=== PATIENT | male | born 1955 | race Two or more races ===

== ENCOUNTER → 2021-02-04 | Outpatient (BNVA) | payer MEDICARE, MEDICAID, SELFPAY | END | disposition home or self-care (01) | PROVIDERS: PCP Nurse Practitioner; Visit Provider Urology | DX: I10 Essential (primary) hypertension (principal) ==

== ENCOUNTER 2024-04-11 10:53 | Emergency (ER) | payer MEDICARE, MEDICAID, SELFPAY ==
[2024-04-11 11:10] VITALS: BP 124/83; PULSE 79; RESP 17; TEMP 37; O2SAT 96; BMI 22.8
--- NOTE | 2024-04-11 11:29 | PD.EDRME ---
Rapid Medical Screening Exam RME Arrival date/time: 04/11/24 10:53 68-year-old male presents to the emergency department with complaints of lower abdominal pain intermittent for 1 month. I have greeted and performed a focused initial assessment of this patient. Initial appropriate labs ordered at this time. A comprehensive ED assessment and evaluation of the patient and analysis of all test and completion of medical decision making process will be conducted by additional ED provider. Chief Complaint: Abdominal Pain Time Seen by Provider: 04/11/24 11:02 Vital signs: Vital Signs Temperature 98.6 F 04/11/24 11:10 Pulse Rate 79 04/11/24 11:10 Respiratory Rate 17 04/11/24 11:10 Blood Pressure 124/83 04/11/24 11:10 Pulse Oximetry (%) 96 04/11/24 11:10 Oxygen Delivery Method Room Air 04/11/24 11:10
[2024-04-11 11:41] LABS: Collection Type, Urine Clean Catch; Squamous Epithelial Cell,Urine 0 /hpf (0-5); WBC,Urine 0 /hpf (0-5)
[2024-04-11] MEDS: DICYCLOMINE 10 MG CAPSULE PO (11:42)
[2024-04-11] MEDS: MG HYD/AL HYD/SIME (Maalox Reg) SUSP 30 ML UDC PO (11:43)
[2024-04-11] MEDS: LIDOCAINE VISCOUS 2% 15 ML UDC PO (11:43)
[2024-04-11 11:45] LABS: Basophils # (Auto) 0.1 Thou/mm3 (0.0-0.2); Basophils % (Auto) 0 % (0-2.5); Eosinophils # (Auto) 0.4 Thou/mm3 (0.0-0.5); Eosinophils % (Auto) 2 % (0-10); Hematocrit 49.5 % (41.0-53.0); Hemoglobin 16.7 g/dL (13.5-16.0); Immature Granulocytes % (Auto) 0 % (0-0); Immature Granulocytes Auto 0.04 Thou/mm3 (0.00-0.00); Lymphocytes # (Auto) 2.7 Thou/mm3 (1.0-4.8); Lymphocytes % (Auto) 17 % (10-50); Mean Corpuscular HGB Conc 33.7 g/dl (31.0-37.0); Mean Corpuscular Hemoglobin 29.7 pg (25.0-35.0); Mean Corpuscular Volume 88 fL (80-100); Monocytes # (Auto) 0.8 Thou/mm3 (0.0-0.8); Monocytes % (Auto) 5 % (0-12); Neutrophils # (Auto) 11.7 Thou/mm3 (1.8-7.7); Neutrophils % (Auto) 74 % (37-80); Nucleated Red Blood Cell % 0 /100 WBC (0); Platelet Count 161 Thou/mm3 (140-440); RDW Standard Deviation 43.5 fL (35.1-43.9); Red Blood Count 5.62 Miln/mm3 (4.50-5.90); White Blood Count 15.7 Thou/mm3 (3.8-10.6)
--- NOTE | 2024-04-11 11:57 | XR_ITS ---
Examination: CT abdomen with intravenous contrast CT pelvis with intravenous contrast 2-D coronal reconstructions 2-D sagittal reconstructions Date and time of exam:April 11, 2024 1458 hours Comparison June 11, 2022 INDICATIONS: Severe nausea vomiting diarrhea beginning 2 weeks ago, worse today. CTDI: vol (mGy) 5.83 DLP: (mGycm) 333 Technique: Multiple axial sections of the abdomen and pelvis have been obtained. 64 slice high-resolution scanner used. 3 mm axial sections have been obtained, post intravenous injection 60 cc [id number] 2-D sagittal, coronal reconstructions obtained. Low dose protocols were performed. One or more of the following dose reduction techniques were used; automated exposure control, adjustment of the mA and/or KV according to patient size, use of iterative reconstruction technique. Findings: Tiny liver cyst, no biliary tract dilatation No gallstones Spleen not enlarged No pancreatic or adrenal mass No renal or ureteral calculi, no hydronephrosis Abdominal aorta intact No pericecal inflammatory change Multiple fluid distended small bowel loops with some small bowel wall thickening Colonic diverticulosis with hyperemia and wall thickening diffusely involving the colon No diverticulitis Prostate is significantly enlarged, transverse dimension 5.2 cm Urinary bladder intact Lumbar fusion L5-S1 with satisfactory alignment IMPRESSION: Diffuse nonspecific colitis pattern Diffuse enteritis pattern Differential would include Crohn's disease Colonic diverticulosis, no diverticulitis Significant prostatomegaly
[2024-04-11 11:58] LABS: Bilirubin,Urine Negative (Negative); Blood,Urine Negative (Negative); Clarity,Urine Clear (Clear/Hazy); Color,Urine Lt-Yellow (Lt Yel-Yel); Glucose, Urine 4+ (Negative); Ketones,Urine Negative (Negative); Leukocyte Esterase,Urine Negative (Negative); Nitrite,Urine Negative (Negative); PH,Urine 6.5 (5.0-7.0); Protein,Urine Negative (Neg - Trace); RBC,Urine 3 /hpf (0-3); Specific Gravity,Urine 1.028 (1.001-1.035); Urobilinogen,Urine Negative mg/dL (0.0-1.0)
[2024-04-11 12:06] LABS: Alanine Aminotransferase 27 U/L (10-49); Albumin, Serum 4.7 gm/dL (3.4-4.8); Albumin/Globulin Ratio 1.8 (1.2-2.2); Alkaline Phosphatase 119 U/L (46-116); Anion Gap 4 (7-16); Aspartate Amino Transferase 22 U/L (0-34); BUN/Creatinine Ratio 18 Ratio (12-20); Bilirubin,Total 0.6 mg/dL (0.3-1.2); Blood Urea Nitrogen 14 mg/dL (9-23); Calcium 9.4 mg/dL (8.3-10.6); Calcium (Corrected) 9.4 mg/dL (8.5-10.1); Carbon Dioxide 25.8 mMol/L (20.0-31.0); Chloride 105 mMol/L (98-107); Creatinine (Component) 0.8 mg/dL (0.6-1.3); Estimated Creatinine Clearance 76.9 mL/min (>60); Globulin 2.6 gm/dL (2.3-3.5); Glucose 120 mg/dL (74-106); Lipase 64 U/L (12-53); Magnesium 2.3 mg/dL (1.6-2.6); Osmolality,Calculated 271 (275-295); Potassium 3.8 mMol/L (3.4-5.1); Sodium 135 mMol/L (136-145); Total Protein 7.3 gm/dL (5.7-8.2); Troponin I < 0.002 ng/mL (0.0-0.045); eGFR > 60 See Note
--- NOTE | 2024-04-11 16:59 | EDNOTE_ITS ---
ED Abdominal Pain RME/HPI General Chief Complaint: Abdominal Pain Stated complaint: ABD PAIN, DIARRHEA, CHILLS Time seen by provider: 04/11/24 11:02 Arrival date/time: 04/11/24 10:53 RME / HPI RME / HPI narrative: 68-year-old male patient was brought in by family for evaluation regarding lower abdominal pain, it comes and goes for the last 1 month. Associated with diarrhea nonbloody this morning. Patient denies any fever denies any vomiting. Denies any other complaints no medications taken prior to arrival. Related Data Home Medications ?Medication ?Instructions ?Recorded ?Confirmed atorvastatin 80 mg tablet 80 mg PO HS 06/10/20 02/12/24 liraglutide 0.6 mg/0.1 mL (18 mg/3 1.8 mg subcut QAM 06/10/20 02/12/24 mL) subcutaneous pen injector (Victoza 2-Gm) aspirin 81 mg tablet,delayed 81 mg PO QDAY 02/18/22 02/12/24 release clopidogrel 75 mg tablet (Plavix) 75 mg PO QDAY 02/18/22 02/12/24 empagliflozin 25 mg tablet 25 mg PO QDAY 01/25/23 02/12/24 (Jardiance) tamsulosin 0.4 mg capsule 0.4 mg PO QDAY 08/11/23 02/12/24 finasteride 5 mg tablet 5 mg PO QDAY 02/12/24 02/12/24 Previous Rx's ?Medication ?Instructions ?Recorded ciprofloxacin HCl 500 mg tablet 500 mg PO BID #14 tabs 04/11/24 (Cipro) metronidazole 500 mg tablet 500 mg PO BID 7 days #14 tabs 04/11/24 Allergies Allergy/AdvReac Type Severity Reaction Status Date / Time No Known Allergies Allergy Verified 02/12/24 08:36 Review of Systems Review of Systems Narrative Review of Systems: Review of system reviewed and within normal limits except mentioned in HPI ED Exam Narrative Physical exam: VITAL SIGNS: Reviewed. GENERAL APPEARANCE: Alert and interactive, follows commands, no acute distress, HEAD AND FACE: Non-traumatic. ENT: PERRL, pink conjunctivitis, eyelid no trauma, Mucous membrane moist. NECK: Supple, nontender, no nuchal rigidity. CHEST: No tenderness, no crepitus, no paradoxical movement, no retractions. LUNGS: Clear, well ventilated, symmetric, no rales, no wheezing, no ronchi, no stridor, good breath sounds bilaterally. HEART: Regular rate, regular rhythm, no murmur, no gallops. ABDOMEN: Soft, positive bowel sounds, nondistended, no guarding, lower abdominal tenderness, no rebound, no masses, RECTAL: Deferred. GENITAL: Deferred. NEUROLOGICAL: Gross motor function intact sensory function intact, Appropriate for age. MUSCULOSKELETAL: low back nontender, full range of motion. EXTREMITIES: Nontender, full range of motion. SKIN: Color pink, dry, no rash, no lacerations, no abrasions, no contusions. LYMPHATICS: Deferred. Course Quality Measures none Orders Category Date Time Status CT Screening NOW Care 04/11/24 11:57 Active NPO STAT Care 04/11/24 11:[address] abdomen pelvis w con Stat Exams 04/11/24 11:57 Completed CBC Stat Lab 04/11/24 11:37 Completed Comprehensive Metabolic Panel Stat Lab 04/11/24 11:37 Completed Lipase Stat Lab 04/11/24 11:37 Completed Magnesium Stat Lab 04/11/24 11:37 Completed Prothrombin Time with INR Stat Lab 04/11/24 11:37 Completed Troponin I Stat Lab 04/11/24 11:37 Completed Urinalysis Stat Lab 04/11/24 11:36 Completed Ciprofloxacin HCl [Ciprofloxacin] Med 04/11/24 16:46 Discontinued 500 mg PO X1 ONE Dicyclomine [Bentyl] Med 04/11/24 11:23 Discontinued 10 mg PO X1 ONE Lidocaine 2% Viscous [Xylocaine 2% Viscous] Med 04/11/24 11:23 Discontinued 15 ml PO X1 ONE mg Hyd/Al Hyd/Gopal Susp [Maalox Susp] Med 04/11/24 11:23 Discontinued 30 ml PO X1 ONE Vital Signs Vital signs: Vital Signs Temperature 98.6 F 04/11/24 11:10 Pulse Rate 79 04/11/24 11:10 Respiratory Rate 17 04/11/24 11:10 Blood Pressure 124/83 04/11/24 11:10 Pulse Oximetry (%) 96 04/11/24 11:10 Oxygen Delivery Method Room Air 04/11/24 11:10 Abdominal Pain MDM MDM Narrative MDM Narrative:: Patient's workup all came back unremarkable except for leukocytosis of 15.7. CT scan of the abdomen and pelvis showed Diffuse nonspecific colitis pattern Diffuse enteritis pattern Differential would include Crohn's disease Colonic diverticulosis, no diverticulitis Significant prostatomegaly Patient was given Cipro in the ED. Patient data External records reviewed:: None Clinical information provided by:: patient Social determinants that could affect healthcare access:: none Patient has the following chronic illnesses:: History of TIA How is presenting disease/condition affected by chronic disease/condition?: caused by Evaluation data The following diagnostics were reviewed and interpreted by me:: lab results and radiology exam(s) Lab and/or radiology exams considered but not ordered:: None Interpretation Summary: Laboratory workup all came back with leukocytosis 15.7. The rest of the labs unremarkable. CT scan of the abdomen pelvis showed Diffuse nonspecific colitis pattern Diffuse enteritis pattern Differential would include Crohn's disease Colonic diverticulosis, no diverticulitis Significant prostatomegaly Medications / Prescriptions Medications or Prescriptions considered but not ordered:: None Medication administrations:: Medication Administration History Discontinued Medications Al Hydrox/Mg Hydrox/Simethicone (Mg Hyd/Al Hyd/Gopal (Maalox Reg) Susp 30 Ml Udc) 30 ml PO X1 ONE Stop: 04/11/24 11:24 Last Admin: 04/11/24 11:43 Dose: 30 ml Documented By: DERICK Ciprofloxacin (Ciprofloxacin Hcl 250 Mg Tablet) 500 mg PO X1 ONE Stop: 04/11/24 16:47 Dicyclomine HCl (Dicyclomine 10 Mg Capsule) 10 mg PO X1 ONE Stop: 04/11/24 11:24 Last Admin: 04/11/24 11:42 Dose: 10 mg Documented By: DERICK Lidocaine HCl (Lidocaine Viscous 2% 15 Ml Udc) 15 ml PO X1 ONE Stop: 04/11/24 11:24 Last Admin: 04/11/24 11:43 Dose: 15 ml Documented By: VG Maalox, Cipro, Bentyl and lidocaine Consultations Consultation(s) initiated? (list below): No Diagnosis Differential diagnosis abdominal pain: abdominal pain, constipation, diverticulitis and other (Colitis) Most likely diagnosis given after review of the tests above:: Colitis Admission Indicated Admission indicated?: not indicated Admission Request Was there a request for admission?: No Disposition Plan Disposition Plan: Discharge Discharge Attestation Discharge Attestation: The patient was given an opportunity to ask questions and understood the discharge instructions. Discharge instructions specifically effects, indications for sooner follow up or return to the emergency department, and the expected course of current diagnosis. Patient condition: Stable Discharge Plan Plan Patient Disposition: HOME (Self Care) Disposition Comment: stable Prescriptions/Referrals Prescriptions/Med Rec: New ciprofloxacin HCl [Cipro] 500 mg tablet 500 mg PO BID Qty: 14 0RF metronidazole 500 mg tablet 500 mg PO BID 7 Days Qty: 14 0RF No Action clopidogrel [Plavix] 75 mg tablet 75 mg PO QDAY aspirin 81 mg tablet,delayed release (DR/EC) 81 mg PO QDAY tamsulosin 0.4 mg capsule 0.4 mg PO QDAY finasteride 5 mg tablet 5 mg PO QDAY atorvastatin 80 mg Tablet 80 mg PO HS Victoza 2-Gm 0.6 mg/0.1 mL (18 mg/3 mL) Pen Injector 1.8 mg SUBCUT QAM Jardiance 25 mg tablet 25 mg PO QDAY Referrals: Imelda Mccormack MD [Primary Care Provider] - In 1 week Problem List Clinical Impression: Colitis Patient/Caregiver Discharge Instructions Education Materials: Understanding Colitis Additional Instructions: Thank you for the opportunity for serving you today. You are stable for discharged . You are advised to: Follow-up with your PCP in 1 to 2 days and as per referral to GI specialist Return to ED for worsening of symptoms Increase oral fluids Take medication as prescribed Print Language: Zambian Stand Alone Forms: Aida Award Info., Patient Portal Info Letter PA/ETHYLBENZENE CRACKING SUPERVISOR Supervising Physician ARTHUR/NILDA Supervising Physician: MD Lubna
[2024-04-11] MEDS: CIPROFLOXACIN HCL 250 MG TABLET 500 MG PO (17:09)
== END 2024-04-11 17:19 | disposition home or self-care (01) ==
PROVIDERS: Nurse Practitioner Primary Care; Emergency Provider Emergency Medicine; PCP Internal Medicine
DX: K52.9 Noninfective gastroenteritis and colitis, unspecified (principal)
CPT/HCPCS: 36415; 74177; 80053; 81001; 83690; 83735; 84484; 85025; 85610; 99285; A4649; J3490; Q9967; A9270

== ENCOUNTER → 2024-04-17 | Outpatient (CLI) | payer MEDICARE, MEDICAID, SELFPAY ==
--- NOTE | 2024-04-17 08:34 | XR_ITS ---
Examination: Lumbar spine 3 views Technique: AP lateral coned lateral lower lumbar spine 3 views standing Exam date and time: April 17, 2024 0849 hours INDICATIONS: Low back pain beginning 2 years ago radiating down the left leg FINDINGS: Transpedicular lumbar fusion L5-S1 with anatomic alignment Minimal anterolisthesis, 4 mm L4 on L5 Diffuse mild lumbar disc narrowing Mild to moderate lumbar spondylosis No lumbar fracture IMPRESSION: Lumbar fusion L5-S1 with anatomic alignment Diffuse mild lumbar disc narrowing above the fusion site
== END | disposition home or self-care (01) ==
PROVIDERS: PCP Obstetrics & Gynecology; Referring Provider Internal Medicine; Visit Provider Internal Medicine
DX: M48.061 Spinal stenosis, lumbar region without neurogenic claudication (principal); M43.27 Fusion of spine, lumbosacral region
CPT/HCPCS: 72100

== ENCOUNTER → 2024-07-18 | Outpatient (CLI) | payer MEDICARE, SELFPAY ==
[2024-07-18 08:10] LABS: Misc Send Out* See Sep Rpt; Quantiferon-TB* See Sep Rpt
[2024-07-18 08:37] LABS: Basophils # (Auto) 0.1 Thou/mm3 (0.0-0.2); Basophils % (Auto) 0 % (0-2.5); Eosinophils # (Auto) 0.2 Thou/mm3 (0.0-0.5); Eosinophils % (Auto) 2 % (0-10); Hematocrit 47.3 % (41.0-53.0); Hemoglobin 16.1 g/dL (13.5-16.0); Immature Granulocytes % (Auto) 0 % (0-0); Immature Granulocytes Auto 0.06 Thou/mm3 (0.00-0.00); Lymphocytes % (Auto) 13 % (10-50); Mean Corpuscular Hemoglobin 29.4 pg (25.0-35.0); Mean Corpuscular Volume 86 fL (80-100); Monocytes # (Auto) 0.8 Thou/mm3 (0.0-0.8); Monocytes % (Auto) 5 % (0-12); Neutrophils # (Auto) 12.6 Thou/mm3 (1.8-7.7); Neutrophils % (Auto) 80 % (37-80); Nucleated Red Blood Cell % 0 /100 WBC (0); Platelet Count 156 Thou/mm3 (140-440); RDW Standard Deviation 42.8 fL (35.1-43.9); Red Blood Count 5.48 Miln/mm3 (4.50-5.90); White Blood Count 15.8 Thou/mm3 (3.8-10.6)
[2024-07-18 08:40] LABS: Prothrombin Time 11.3 Seconds (9.0-12.2)
[2024-07-18 08:57] LABS: Ferritin 27 ng/mL (10.5-307.3)
[2024-07-18 09:09] LABS: Alanine Aminotransferase 36 U/L (10-49); Albumin, Serum 4.2 gm/dL (3.4-4.8); Alkaline Phosphatase 116 U/L (46-116); Anion Gap 8 (7-16); Aspartate Amino Transferase 23 U/L (0-34); BUN/Creatinine Ratio 19 Ratio (12-20); Bilirubin,Direct 0.2 mg/dL (0.0-0.3); Bilirubin,Total 0.5 mg/dL (0.3-1.2); Blood Urea Nitrogen 15 mg/dL (9-23); C-Reactive Protein < 0.4 mg/dL (0.0-0.9); Calcium 9.2 mg/dL (8.3-10.6); Carbon Dioxide 23.9 mMol/L (20.0-31.0); Chloride 107 mMol/L (98-107); Creatinine (Component) 0.8 mg/dL (0.6-1.3); Glucose 156 mg/dL (74-106); LDH (Lactate Dehydrogenase) 173 U/L (120-246); Osmolality,Calculated 281 (275-295); Sodium 139 mMol/L (136-145); Total Protein 6.4 gm/dL (5.7-8.2); eGFR > 60 See Note
[2024-07-18 09:16] LABS: Sed Rate (ESR) 8 mm/hr (0-20)
[2024-07-18 09:38] LABS: Hepatitis A Antibody IgM Non Reactive (Non React); Hepatitis B Core Antibody IgM Non Reactive (Non React); Hepatitis B Surface Antigen Non Reactive (Non React); Hepatitis C Antibody Non Reactive (Non React)
[2024-07-18 10:17] LABS: Urea Breath Test Positive (Negative)
[2024-07-22 06:59] LABS: HIV Ag/Ab, 4th Gen NON-REACTIVE
== END | disposition home or self-care (01) ==
LOC: COPL 07:36
PROVIDERS: PCP Internal Medicine; Referring Provider Internal Medicine; Visit Provider Internal Medicine
DX: R93.5 Abnormal findings on diagnostic imaging of other abdominal regions, including retroperitoneum (principal); R11.0 Nausea
CPT/HCPCS: 36415; 80048; 80074; 80076; 82728; 83013; 83014; 83615; 85025; 85610; 85652; 86140; 86480; 87389

== ENCOUNTER → 2024-07-23 | Outpatient (CLI) | payer MEDICARE, SELFPAY ==
[2024-07-29 07:03] LABS: Helicobacter pylori Ag, Stool* DETECTED (NOT DETECTED)
[2024-07-30 06:37] LABS: Calprotectin, Stool* 37 mcg/g
== END | disposition home or self-care (01) ==
LOC: SLDO 10:46
PROVIDERS: Referring Provider Internal Medicine Gastroenterology; Visit Provider Internal Medicine Gastroenterology
DX: R93.5 Abnormal findings on diagnostic imaging of other abdominal regions, including retroperitoneum (principal)
CPT/HCPCS: 83993; 87338

== ENCOUNTER → 2024-08-09 | Outpatient (CLI) | payer MEDICARE, SELFPAY ==
[2024-08-09 11:46] LABS: Cardiac Risk Estimate 3.3 RATIO (4.0-6.7); Cholesterol 128 mg/dL (132-200); Free T4 (Free Thyroxine) 1.29 ng/dL (0.89-1.76); HDL Cholesterol 39 mg/dL (40-60); LDL Cholesterol,Calculated 63 mg/dL (0-130); Thyroid Stimulating Hormone 0.64 uIU/mL (0.55-4.78); Triglycerides 132 mg/dL (30-150)
[2024-08-09 12:10] LABS: Folate > 24.00 ng/mL (>5.38); Vitamin B12 575 pg/mL (211-911); Vitamin D 25 Hydroxy Total 49.5 ng/mL (7.3-40.2)
== END | disposition home or self-care (01) ==
LOC: COPL 10:22
PROVIDERS: PCP Internal Medicine; Referring Provider Nurse Practitioner Family; Visit Provider Psychiatry & Neurology Neurology
DX: R20.2 Paresthesia of skin (principal); R26.89 Other abnormalities of gait and mobility; E78.00 Pure hypercholesterolemia, unspecified; Z79.899 Other long term (current) drug therapy
CPT/HCPCS: 36415; 80061; 82306; 82607; 82746; 84439; 84443

== ENCOUNTER → 2024-12-09 | Outpatient (CLI) | payer MEDICARE, MEDICAID, SELFPAY ==
[2024-12-09 11:48] LABS: Basophils # (Auto) 0.1 Thou/mm3 (0.0-0.2); Basophils % (Auto) 1 % (0-2.5); Eosinophils # (Auto) 0.3 Thou/mm3 (0.0-0.5); Eosinophils % (Auto) 2 % (0-10); Hematocrit 48.7 % (41.0-53.0); Hemoglobin 16.5 g/dL (13.5-16.0); Immature Granulocytes Auto 0.04 Thou/mm3 (0.00-0.00); Lymphocytes # (Auto) 2.8 Thou/mm3 (1.0-4.8); Lymphocytes % (Auto) 22 % (10-50); Mean Corpuscular HGB Conc 33.9 g/dl (31.0-37.0); Mean Corpuscular Hemoglobin 29.8 pg (25.0-35.0); Mean Corpuscular Volume 88 fL (80-100); Monocytes # (Auto) 0.8 Thou/mm3 (0.0-0.8); Monocytes % (Auto) 6 % (0-12); Neutrophils # (Auto) 8.8 Thou/mm3 (1.8-7.7); Neutrophils % (Auto) 69 % (37-80); Nucleated Red Blood Cell # 0.00 Thou/mm3 (0.00-0.00); Nucleated Red Blood Cell % 0 /100 WBC (0); Platelet Count 168 Thou/mm3 (140-440); RDW Standard Deviation 43.9 fL (35.1-43.9); Red Blood Count 5.53 Miln/mm3 (4.50-5.90); White Blood Count 12.8 Thou/mm3 (3.8-10.6)
[2024-12-09 12:06] LABS: Alanine Aminotransferase 24 U/L (10-49); Albumin, Serum 4.6 gm/dL (3.4-4.8); Albumin/Globulin Ratio 1.8 (1.2-2.2); Alkaline Phosphatase 107 U/L (46-116); Anion Gap 9 (7-16); Aspartate Amino Transferase 21 U/L (0-34); BUN/Creatinine Ratio 13 Ratio (12-20); Bilirubin,Total 0.6 mg/dL (0.3-1.2); Blood Urea Nitrogen 12 mg/dL (9-23); Calcium 9.0 mg/dL (8.3-10.6); Calcium (Corrected) 9.0 mg/dL (8.5-10.1); Carbon Dioxide 26.4 mMol/L (20.0-31.0); Chloride 106 mMol/L (98-107); Creatinine (Component) 0.9 mg/dL (0.6-1.3); Globulin 2.6 gm/dL (2.3-3.5); Glucose 110 mg/dL (74-106); Osmolality,Calculated 281 (275-295); Potassium 4.0 mMol/L (3.4-5.1); Sodium 141 mMol/L (136-145); Total Protein 7.2 gm/dL (5.7-8.2); eGFR > 60 See Note
== END | disposition home or self-care (01) ==
PROVIDERS: PCP Internal Medicine; Referring Provider Internal Medicine Hematology & Oncology; Visit Provider Internal Medicine Hematology & Oncology
DX: R91.1 Solitary pulmonary nodule (principal)
CPT/HCPCS: 36415; 80053; 85025

== ENCOUNTER → 2024-12-16 | Outpatient (CLI) | payer MEDICARE, MEDICAID, SELFPAY ==
--- NOTE | 2024-12-16 13:30 | XR_ITS ---
Examination: CT chest, without intravenous contrast. Sagittal and coronal 2-D reconstructions. Exam date and time: December 16, 2024 1337 hours Comparison January 25, 2024 INDICATIONS: Pulmonary nodules on CT chest January 25, 2024 CTDI:vol (mGy) 8.04 DLP: (mGycm) 280 Technique: Multiple 3.0 mm axial sections of the chest to been obtained. Bone and lung density settings are obtained. Sagittal and coronal 2-D reconstructions have been obtained. Low dose protocols were performed. One or more of the following dose reduction techniques were used; automated exposure control, adjustment of the mA and/or KV according to patient size, use of iterative reconstruction technique. Findings: No thoracic aortic aneurysm dilatation Pulmonary artery segments are not enlarged. No paratracheal tracheobronchial or bronchopulmonary adenopathy. Stable bilateral pulmonary nodules No new pulmonary nodules No visualized liver or splenic lesion IMPRESSION: Stable bilateral pulmonary nodules
== END | disposition home or self-care (01) ==
LOC: CCTX 12-19 06:47
PROVIDERS: Referring Provider Internal Medicine Hematology & Oncology; Visit Provider Internal Medicine Hematology & Oncology
DX: R91.8 Other nonspecific abnormal finding of lung field (principal)
CPT/HCPCS: 71250

== ENCOUNTER → 2025-01-17 | Outpatient (CLI) | payer MEDICARE, MEDICAID, SELFPAY ==
[2025-01-17 12:00] LABS: Urea Breath Test Negative (Negative)
== END | disposition home or self-care (01) ==
PROVIDERS: PCP Internal Medicine
DX: A04.8 Other specified bacterial intestinal infections (principal)
CPT/HCPCS: 83013; 83014

== ENCOUNTER → 2025-02-24 | Outpatient (CLI) | payer MEDICARE, MEDICAID, SELFPAY ==
[2025-02-24 08:25] LABS: Creatinine MALB Rnd Ur 112 mg/dL (30-125); Microalbumin Creat Ratio 67 mg/gCrea (<30); Microalbumin, Random Urine 75 mg/L (0-300)
[2025-02-24 08:25] LABS: Basophils # (Auto) 0.1 Thou/mm3 (0.0-0.2); Basophils % (Auto) 1 % (0-2.5); Eosinophils # (Auto) 0.5 Thou/mm3 (0.0-0.5); Eosinophils % (Auto) 4 % (0-10); Hematocrit 48.2 % (41.0-53.0); Hemoglobin 15.8 g/dL (13.5-16.0); Immature Granulocytes Auto 0.06 Thou/mm3 (0.00-0.00); Lymphocytes # (Auto) 2.5 Thou/mm3 (1.0-4.8); Lymphocytes % (Auto) 20 % (10-50); Mean Corpuscular HGB Conc 32.8 g/dl (31.0-37.0); Mean Corpuscular Hemoglobin 29.3 pg (25.0-35.0); Mean Corpuscular Volume 89 fL (80-100); Monocytes # (Auto) 1.0 Thou/mm3 (0.0-0.8); Monocytes % (Auto) 8 % (0-12); Neutrophils # (Auto) 8.2 Thou/mm3 (1.8-7.7); Neutrophils % (Auto) 67 % (37-80); Nucleated Red Blood Cell # 0.00 Thou/mm3 (0.00-0.00); Nucleated Red Blood Cell % 0 /100 WBC (0); Platelet Count 160 Thou/mm3 (140-440); RDW Standard Deviation 45.1 fL (35.1-43.9); Red Blood Count 5.39 Miln/mm3 (4.50-5.90); White Blood Count 12.2 Thou/mm3 (3.8-10.6)
[2025-02-24 08:28] LABS: Alanine Aminotransferase 25 U/L (10-49); Albumin, Serum 4.3 gm/dL (3.4-4.8); Albumin/Globulin Ratio 1.9 (1.2-2.2); Alkaline Phosphatase 107 U/L (46-116); Anion Gap 7 (7-16); Aspartate Amino Transferase 19 U/L (0-34); BUN/Creatinine Ratio 19 Ratio (12-20); Bilirubin,Total 0.4 mg/dL (0.3-1.2); Blood Urea Nitrogen 17 mg/dL (9-23); Calcium 9.4 mg/dL (8.3-10.6); Calcium (Corrected) 9.4 mg/dL (8.5-10.1); Carbon Dioxide 26.1 mMol/L (20.0-31.0); Cardiac Risk Estimate 3.5 RATIO (4.0-6.7); Chloride 110 mMol/L (98-107); Cholesterol 133 mg/dL (132-200); Creatinine (Component) 0.9 mg/dL (0.6-1.3); Globulin 2.3 gm/dL (2.3-3.5); Glucose 139 mg/dL (74-106); HDL Cholesterol 38 mg/dL (40-60); LDL Cholesterol,Calculated 75 mg/dL (0-130); Osmolality,Calculated 288 (275-295); Potassium 4.5 mMol/L (3.4-5.1); Sodium 143 mMol/L (136-145); Thyroid Stimulating Hormone 0.71 uIU/mL (0.55-4.78); Total Protein 6.6 gm/dL (5.7-8.2); Triglycerides 100 mg/dL (30-150); eGFR > 60 See Note
[2025-02-24 08:37] LABS: Glucose Estimated Average 157 mg/dL (80-131); Hemoglobin A1C 7.1 % Hgb (4.8-6.0)
[2025-02-24 09:14] LABS: Hepatitis A Antibody IgM Non Reactive (Non React); Hepatitis B Core Antibody IgM Non Reactive (Non React); Hepatitis B Surface Antigen Non Reactive (Non React); Hepatitis C Antibody Non Reactive (Non React)
== END | disposition home or self-care (01) ==
LOC: COPL 06:43
PROVIDERS: PCP Internal Medicine
DX: E11.9 Type 2 diabetes mellitus without complications (principal); E78.00 Pure hypercholesterolemia, unspecified; Z11.3 Encounter for screening for infections with a predominantly sexual mode of transmission; Z12.5 Encounter for screening for malignant neoplasm of prostate
CPT/HCPCS: 36415; 80053; 80061; 80074; 82043; 82570; 83036; 84443; 85025

== ENCOUNTER → 2025-02-25 | Outpatient (CLI) | payer OTHER, MEDICAID, SELFPAY ==
--- NOTE | 2025-02-25 06:00 | EKG_ITS ---
[facility] Test Date: 2025-02-25 Pat Name: LOULOU GOLD Department: Room: - Gender: Male Grappler: GEORGE : 1955 Requested By: Eric Metcalf Order Number: [id number] Reading MD: Eric Metcalf Measurements Intervals [place] Rate: 58 P: 43 OR: 187 QRS: 6 QRSD: 93 T: 39 QT: 371 QTc: 367 Interpretive Statements SINUS BRADYCARDIA Compared to ECG 01/24/2023 10:34:48 Sinus rhythm no longer present /store/S0/[id number].pdf
[2025-02-25 11:38] LABS: Alanine Aminotransferase 28 U/L (10-49); Albumin, Serum 4.4 gm/dL (3.4-4.8); Albumin/Globulin Ratio 2.1 (1.2-2.2); Alkaline Phosphatase 136 U/L (46-116); Anion Gap 7 (7-16); Aspartate Amino Transferase 19 U/L (0-34); BUN/Creatinine Ratio 18 Ratio (12-20); Bilirubin,Total 0.4 mg/dL (0.3-1.2); Blood Urea Nitrogen 16 mg/dL (9-23); Calcium 9.7 mg/dL (8.3-10.6); Calcium (Corrected) 9.7 mg/dL (8.5-10.1); Carbon Dioxide 28.1 mMol/L (20.0-31.0); Chloride 106 mMol/L (98-107); Creatinine (Component) 0.9 mg/dL (0.6-1.3); Globulin 2.1 gm/dL (2.3-3.5); Glucose 215 mg/dL (74-106); Osmolality,Calculated 288 (275-295); Potassium 4.2 mMol/L (3.4-5.1); Sodium 141 mMol/L (136-145); Total Protein 6.5 gm/dL (5.7-8.2); eGFR > 60 See Note
[2025-02-25 13:10] VITALS: BMI 22.9
--- NOTE | 2025-02-26 12:22 | SUR.PREOP ---
pt upset. states he is diabetic and is starving. also stated has been rescheduled 3 times and needs to be done in the morning. glucose checked 111. pt aware. got dressed and exited building. juice provided.
== END | disposition home or self-care (01) ==
PROVIDERS: Anesthesiology; PCP Internal Medicine; Referring Provider Internal Medicine Gastroenterology; Visit Provider Internal Medicine Gastroenterology
DX: K52.3 Indeterminate colitis (principal); B96.81 Helicobacter pylori [H. pylori] as the cause of diseases classified elsewhere
CPT/HCPCS: 36415; 80053; 93005